=== PATIENT | female | born 1970 | race Caucasian/White ===

== ENCOUNTER 2019-03-10 21:31 | Emergency (ER) | payer OTHER ==
[~2019-03-10] VITALS: Ht 157.5 cm; Wt 141.0 kg
[2019-03-11] MEDS ORDERED: KETOROLAC 60MG/2ML VIAL IM ONE (02:15)
[2019-03-11 02:42] VITALS: BP 138/83
== END 2019-03-11 02:44 | disposition home or self-care (01) ==
LOC: ER 21:31
DX: H60.92 Unspecified otitis externa, left ear (principal); J45.909 Unspecified asthma, uncomplicated
CPT/HCPCS: 96372; 99283; J1885